=== PATIENT | female | born 1950 | race American Indian/Alaskan Native ===

== ENCOUNTER 2017-05-09 06:03 | Emergency (ER) | payer OTHER ==
[2017-05-09 07:20] VITALS: BP 133/66
[2017-05-09] MEDS ORDERED: TORADOL IM ONE (08:45)
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
== END 2017-05-09 10:08 | disposition home or self-care (01) ==
LOC: ED 06:03
DX: S46.811A Strain of other muscles, fascia and tendons at shoulder and upper arm level, right arm, initial encounter (principal); I10 Essential (primary) hypertension; E11.9 Type 2 diabetes mellitus without complications; V49.49XA Driver injured in collision with other motor vehicles in traffic accident, initial encounter; Y93.89 Activity, other specified; Y92.89 Other specified places as the place of occurrence of the external cause; Y99.8 Other external cause status
CPT/HCPCS: 73030; 96372; 99283; J1885